=== PATIENT | female | born 2000 | race Caucasian/White ===

== ENCOUNTER 2025-09-01 18:09 | Emergency (ER) | payer BC, SELFPAY ==
[2025-09-01 18:10] VITALS: BMI 20.2
[2025-09-01 19:55] VITALS: BP 134/89; PULSE 89; RESP 16; TEMP 36.7; O2SAT 97
--- NOTE | 2025-09-01 20:17 | PD.EDNV ---
Nausea/Vomit./Diarrhea-RME/HPI General Chief complaint: Nausea/Vomiting/Diarrhea Stated complaint: VOMITING TODAY Time Seen by Provider: 09/01/25 19:35 Arrival date/time: 09/01/25 18:09 25-year-old female reports with complaints of vomiting several times today after having a night of drinking large quantities of alcohol all night. Patient states that she has taken a Zofran earlier on today she is beginning to feel better but she wanted to be evaluated. She denies any fever or chills any shortness of breath any diarrhea constipation blood or mucus in stools or vomiting blood. She also denies chance of Limitations: no limitations Related Data Allergies Allergy/AdvReac Type Severity Reaction Status Date / Time No Known Allergies Allergy Verified 09/01/25 18:12 Review of Systems Constitutional Constitutional: Denies fever(s) and Denies headache(s) ENT Ears, Nose, Mouth, and Throat: Denies dizziness and Denies headache(s) Cardiovascular Cardiovascular: Denies chest pain, Denies chest pain at rest, Denies dyspnea and Denies syncope Respiratory Respiratory: Denies cough and Denies dyspnea Gastrointestinal Gastrointestinal: Denies abdominal pain, Denies coffee ground emesis, Denies melena, Reports nausea and Reports vomiting Genitourinary Genitourinary: Denies dysuria and Denies hematuria Musculoskeletal Musculoskeletal: Denies back pain and Denies deformity Neurologic Neurologic: Denies dizziness, Denies headache(s) and Denies syncope Past Medical History Social History SMOKING STATUS: Never smoker ED Exam General Limitations: Present no limitations General appearance: Present alert and in no apparent distress Head Head exam: Present atraumatic Eye Eye exam: Present normal appearance, PERRL and EOMI ENT ENT exam: Present normal exam, normal oropharynx and mucous membranes moist Neck Neck exam: Present normal inspection, full ROM and trachea midline Chest Chest inspection: Present normal inspection and symmetric chest wall rise Respiratory Respiratory exam: Present normal lung sounds bilaterally Cardiovascular Cardiovascular exam: Present regular rate, normal rhythm and normal heart sounds Abdominal Exam Abdominal exam: Present soft and normal bowel sounds Extremities Exam Extremities exam: Present normal inspection and full ROM Back Exam Back exam: Present normal inspection and full ROM Neurological Exam Neurological exam: Present alert, oriented X3 and CN II-XII intact Psychiatric Psychiatric exam: Present normal affect and normal mood Skin Skin exam: Present warm, dry, intact and normal color Course Course Course Narrative: 25-year-old female reports with complaints of nausea and vomiting after drinking large quantities of alcohol. Patient presented with a p.o. challenge which she tolerated well she will be discharged home she is advised on hydrating lightly and slowly avoiding alcohol and following up as needed. Patient verbalized understanding Quality Measures none Orders Category Date Time Status Fluid challenge administration NOW Care 09/01/25 20:17 Active Vital Signs Vital signs: Vital Signs Temperature 98.1 F 09/01/25 19:55 Pulse Rate 89 09/01/25 19:55 Respiratory Rate 16 09/01/25 19:55 Blood Pressure 134/89 H 09/01/25 19:55 Pulse Oximetry (%) 97 09/01/25 19:55 Oxygen Delivery Method Room Air 09/01/25 19:55 Nausea/Vomiting/Diarrhea Patient data External records reviewed:: None Clinical information provided by:: patient Social determinants that could affect healthcare access:: none Patient has the following chronic illnesses:: none How is presenting disease/condition affected by chronic disease/condition?: no chronic disease Evaluation data The following diagnostics were reviewed and interpreted by me:: other (specify) (none) Lab and/or radiology exams considered but not ordered:: none Interpretation Summary: n/a Medications / Prescriptions Medications / Prescriptions considered but not ordered:: none Medication administrations:: Zofran Consultations Consultation(s) initiated? (list below): No Diagnosis Nausea Differential Diagnosis: food poisoning, gastroenteritis and dehydration Most likely diagnosis given after review of the tests above:: Side effects of alcohol use Admission Indicated Admission indicated?: not indicated Admission Request Was there a request for admission?: No Disposition Plan Disposition Plan: Discharge Discharge Attestation Discharge Attestation: The patient and all family members were given an opportunity to ask questions and understood the discharge instructions. Discharge instructions specifically effects, indications for sooner follow up or return to the emergency department, and the expected course of current diagnosis. Patient condition: Stable Discharge Plan Plan Patient Disposition: HOME (Self Care) Prescriptions/Referrals Referrals: No Primary/Family,Physician [Primary Care Provider] - In 1 week Problem List Clinical Impression: Adverse effect of alcoholic beverage Patient/Caregiver Discharge Instructions Discharge Activity: activity as tolerated Education Materials: ED Dehydration (Adult) Additional Instructions: If vomiting start with 1 teaspoon (5mL) of Pedialyte or Gatorade every 15 min and increase by 5 mL every hour until vomiting stops. Be careful not to give water on empty stomach as it may cause more vomiting Print Language: Nigerian Stand Alone Forms: Radha Award Info., Patient Portal Info Letter
[2025-09-01 22:04] VITALS: BP 128/76; PULSE 90; RESP 18; TEMP 36.7; O2SAT 98
[2025-09-01] MEDS: METOCLOPRAMIDE INJ 5 MG/ML VIAL 2 ML 10 MG IM (22:24)
== END 2025-09-01 22:26 | disposition home or self-care (01) ==
PROVIDERS: Emergency Provider Physician Assistant
DX: F10.90 Alcohol use, unspecified, uncomplicated (principal)
CPT/HCPCS: 96372; 99282; J2765